=== PATIENT | male | born 1995 | race Caucasian/White ===

== ENCOUNTER 2023-02-19 10:47 | Emergency (ER) | payer OTHER, SELFPAY ==
--- NOTE | 2023-02-19 10:51 | ED.GENADULT ---
HPI - General Adult General Chief complaint: Nausea/Vomiting/Diarrhea Stated complaint: DIARRHEA Source: patient and RN notes reviewed History of Present Illness HPI narrative: 27 year male presents Urgent Care with at side. Patient states he has had diarrhea since early Sunday morning. Patient states he was going approximately every hour and after eating. patient states vomited once the 1st day and a fever on the 1st 2 days which has resolved. Patient's had something similar earlier in the week which resolved after 2 days. Patient denies any abdominal pain. Denies any dizziness or other complaints. Patient has been taking an antidiarrheal medication, Pepto-Bismol, and drinking Gatorade at home with no relief. Some parts of this dictation were generated by voice recognition software and may contain typographical and/or grammatical inaccuracies. Related Data Home Medications Medication Instructions Recorded Confirmed No Home Medications 02/19/23 02/19/23 Allergies Allergy/AdvReac Type Severity Reaction Status Date / Time No Known Allergies Allergy Verified 02/19/23 11:00 Review of Systems Review of Systems: Pertinent positives and pertinent negatives per HPI. PMFSH Comments At the time of my signature, I reviewed and agree with the nursing past medical, surgical, social, and family history. There is no relevant family history pertinent to the patient complaint. Exam Narrative: GENERAL: This is a well-nourished, well-developed patient, in no apparent distress. HEAD: normocephalic, atraumatic. EYES: Sclera clear/white. Vision is grossly intact. EARS: External ears normal, auditory canals clear and without drainage. Hearing grossly intact. NOSE: External nose normal with no obvious nasal discharge, nares without redness, no rhinorrhea. THROAT: Mucous membranes moist, posterior pharynx clear. NECK: Neck supple, non-tender without lymphadenopathy, masses or thyromegaly. CARDIOVASCULAR: Regular rate and rhythm without murmurs, gallops, or rubs. RESPIRATORY: Clear to auscultation. Breath sounds equal bilaterally. No wheezes, rales, or rhonchi. GASTROINTESTINAL: Abdomen soft, non-tender, nondistended. Bowel sounds are active. No hepato-splenomegaly, or palpable masses. No guarding. SKIN: warm, intact with no suspicious lesions or rash, good texture and turgor. NEURO: awake, alert, and oriented to person, place and time. There were no obvious focal neurologic abnormalities. EXTREMITIES: No clubbing, cyanosis, or edema. No joint tenderness, effusion, or edema noted. BACK: Nontender without deformity or crepitus. No flank tenderness. Course Course Level of Care: Express Care Visit Vital Signs Vital signs: Vital Signs Temperature 97.9 F 02/19/23 11:01 Pulse Rate 74 02/19/23 11:01 Respiratory Rate 16 02/19/23 11:01 Blood Pressure 126/94 H 02/19/23 11:01 Pulse Oximetry 99 02/19/23 11:01 Temperature 97.9 F 02/19/23 11:01 Pulse Rate 74 02/19/23 11:01 Respiratory Rate 16 02/19/23 11:01 Blood Pressure 126/94 H 02/19/23 11:01 Pulse Oximetry 99 02/19/23 11:01 reviewed Medical Decision Making MDM Narrative Medical decision making narrative: You've been diagnosed with a viral illness that would not require antibiotics at this time. You may take Imodium for diarrhea. If you would like to eat food, you should follow the BRAT diet (bananas, rice, applesauce, and toast, or things of the like). If you develop any new or worsening symptoms, you should go to the emergency dept without hesitation. Follow up with your tools developer in 2-5 days. Differential Diagnosis Differential Diagnosis: Gastroenteritis, food poisoning, virus Vital Signs Vital Signs: Vital Signs Temperature 97.9 F 02/19/23 11:01 Pulse Rate 74 02/19/23 11:01 Respiratory Rate 16 02/19/23 11:01 Blood Pressure 126/94 H 02/19/23 11:01 Pulse Oximetry 99 02/19/23 11:01
[2023-02-19 11:01] VITALS: BP 126/94; PULSE 74; RESP 16; TEMP 36.6; O2SAT 99
== END 2023-02-19 11:08 | disposition home or self-care (01) ==
PROVIDERS: Emergency Provider Nurse Practitioner Family; PCP Family Medicine Sports Medicine
DX: K52.9 Noninfective gastroenteritis and colitis, unspecified (principal)
CPT/HCPCS: 99211; G0463